=== PATIENT | male | born 1975 | race Caucasian/White ===

== ENCOUNTER 2025-03-03 17:07 | Emergency (ER) | payer OTHER ==
--- OUTSIDE RECORDS SUMMARY | 2025-03-03 17:10 | XMS REPORT | Continuity of Care Document ---
Author Name Unknown Address [address] [place] [address] Address [address] [facility]. [address] [place] [address] Care Team Providers Care Microsoft Architect Name Role Phone Ajibade_O_AH Attending Clinician Unavailable Ige-Odunuga_J_AH Attending Clinician Unavailable Ajibade_O_AH Admitting Clinician Unavailable Ige-Odunuga_J_AH Admitting Clinician Unavailable Payers Payer Name Policy Type Policy Number Effective Date Expirati on Date Source [facility] ([facility]IC[facility]PLACEMENT/ADVANT AGE - HMO) [id number] 7218-01-01 00:00:00
[2025-03-03 18:12] LABS: Influenza A Ag Negative; Influenza B Ag Negative; SARS-CoV-2 Antigen Rapid Res Negative (Negative)
[2025-03-03] MEDS ORDERED: levoFLOXacin 250 MG TAB ONE (18:38)
--- NOTE | 2025-03-03 18:51 | EDPHYS ---
Physician Documentation [facility] Name: Arsen Lind Jr Age: 49 yrs Sex: Male : 1975 Arrival Date: 03/03/2025 Time: 17:07 Bed 20 Private MD: ED Physician Edward Mcleod HPI: 03/03 17:30 This 49 yrs old Male presents to ER via Ambulatory with complaints of Shortness Of rn Breath, hallucinations, Flu Symptoms. 17:30 Patient reports 2 weeks of flulike symptoms, cough, congestion, runny nose, sore throat rn and now mild shortness of breath. Reports productive sputum. 2 days ago felt "strange". Initially reported hallucinations but when questioned further was not auditory or visual hallucinations he just did not feel right. No chronic lung problems or heart problems. Patient reports hypertension and has not been taking his medication recently. States current blood pressure of 180s over 100 his baseline for him.. Historical: - Allergies: 17:22 No Known Allergies; dd2 - PMHx: 17:22 Sleep apnea; dd2 - PSHx: 17:22 None; dd2 - Immunization history:: Adult Immunizations not up to date. - Infectious Disease History:: Denies. - Family history:: not pertinent. - Hospitalizations: : No recent hospitalization is reported. - Social history:: Smoking status: unknown. ROS: 17:30 Constitutional: Negative for fever, chills, and weight loss, Cardiovascular: Negative rn for chest pain, palpitations, and edema, Respiratory: Positive for cough and shortness of breath Abdomen/GI: Negative for abdominal pain, nausea, vomiting, diarrhea, and constipation, MS/Extremity: Negative for injury and deformity, Skin: Negative for injury, rash, and discoloration, Neuro: Negative for headache, weakness, numbness, tingling, and seizure, Exam: 17:30 Constitutional: This is a well developed, well nourished patient who is awake, alert, rn and in no acute distress. Cardiovascular: Tachycardic, regular no pulse deficits. Respiratory: Speaking full sentences, unlabored. No increased work of breathing, no retractions or nasal flaring. Neuro: Awake and alert, GCS 15 Vital Signs: 17:21 BP 188 / 102; Pulse 106; Resp 17; Temp 97.9(TE); Pulse Ox 100% on R/A; Pain 0/10; dd2 17:44 BP 163 / 91; Pulse 97; Resp 20; Pulse Ox 100% on R/A; ar8 18:40 BP 158 / 87; Pulse 84; Pulse Ox 99% on R/A; ar8 19:00 BP 158 / 78; Pulse 73; Resp 16; Pulse Ox 99% on R/A; ss12 17:21 Pain Scale: Adult dd2 MDM: 17:19 Medical Screening Exam initiated rn 18:17 Differential diagnosis: Bronchitis anxiety, pneumonia, Pneumothorax Psychogenic. Data rn reviewed: vital signs, nurses notes, lab test result(s), radiologic studies, plain films, and as a result, I will discharge patient. Independent interpretation of the following test(s) in the Emergency Department X-Ray: My interpretation is Chest x-ray images with bilateral perihilar infiltrates per my interpretation. No pneumothorax.. Care significantly affected by the following chronic conditions: Hypertension. Counseling: I had a detailed discussion with the patient and/or guardian regarding the historical points, exam findings, and any diagnostic results supporting the discharge/admit diagnosis, lab results, radiology results, the need for outpatient follow up, to return to the emergency department if symptoms worsen or persist or if there are any questions or concerns that arise at home. Special discussion: I discussed with the patient/guardian in detail that at this point there is no indication for admission to the hospital. It is understood, however, that if the symptoms persist or worsen the patient needs to return immediately for re-evaluation. 03/03 17:29 Order name: COVID-19 Ag + Flu A+B Ag; Complete Time: 18:16 rn 03/03 17:29 Order name: Group A Streptococcus Rapid; Complete Time: 18:16 rn 03/03 18:16 Order name: Throat Culture EDCA 03/03 17:29 Order name: XRAY Chest (1 view); Complete Time: 18:56 rn Administered Medications: 18:38 Drug: LevOfloxacin PO 500 mg PO once Route: PO; ar8 19:19 Follow up: Response: No adverse reaction ss12 19:10 Drug: Trimethoprim-Sulfamethoxazole PO (160 mg-800 mg (DS) 1 tablet PO once Route: PO; ss12 19:20 Follow up: Response: No adverse reaction ss12 Disposition Summary: 03/03/25 18:50 Discharge Ordered Notes: Location: Home rn Problem: new rn Symptoms: have improved rn Condition: Stable rn Diagnosis - Cough rn Followup: rn - With: Private Physician - When: 2 - 3 days - Reason: Recheck today's complaints, Re-evaluation by your physician Discharge Instructions: - Discharge Summary Sheet rn - Cough, Adult rn Forms: - Medication Reconciliation Form rn - Antibiotic wilderness guide - Prescription Opioid Use rn - Patient Portal Instructions rn - Leadership Thank You Letter rn Prescriptions: - levofloxacin 500 mg Oral tablet - take 1 tablet ORAL route once daily for 10 days; 10 tablet; Refills: 0, Product rn Selection Permitted Signatures: Dispatcher [employer] EDEdward Boss MD MD rn DAVIS, DIANA RN RN dd2 Yodit Monsivais, RN RN ss12 Lucio Cummins, RN RN ar8
--- NOTE | 2025-03-03 18:51 | ER ---
Nurse's Notes [facility] Name: Arsen Lind Jr Age: 49 yrs Sex: Male : 1975 Arrival Date: 03/03/2025 Time: 17:07 Bed 20 Private MD: Diagnosis: Cough Presentation: 03/03 17:16 Chief complaint: Patient states: HE HAS BEEN HAVING "FLU-LIKE" SYMPTOMS, CHEST PAIN, dd2 WEIRD DREAMS AND HALLUCINATIONS AND SHORTNESS OF BREATH FOR 2 WEEKS. PT REPORTS GAYLE DOESN'T KNOW IF THIS IS AUDITORY OR VISUAL HALLUCINATIONS. Coronavirus screen: chills, congestion, cough unrelated to allergies, fatigue, shortness of breath, sore throat. Ebola Screen: No symptoms or risks identified at this time. 17:16 Method Of Arrival: Ambulatory dd2 17:21 Initial Sepsis Screen: Does the patient meet any 2 criteria? No. Patient's initial dd2 sepsis screen is negative. Does the patient have a suspected source of infection? No. Patient's initial sepsis screen is negative. Risk Assessment: Do you want to hurt yourself or someone else? Patient reports no desire to harm self or others. Onset of symptoms is unknown. 17:21 Acuity: FERCHO 3 dd2 Triage Assessment: 17:22 General: Appears in no apparent distress. uncomfortable, Behavior is appropriate for dd2 age, agitated. Pain: Denies pain. Cardiovascular: Denies chest pain. Respiratory: Reports shortness of breath pain with cough Airway is patent Respiratory effort is even, unlabored, Respiratory pattern is regular, symmetrical. Historical: - Allergies: 17:22 No Known Allergies; dd2 - PMHx: 17:22 Sleep apnea; dd2 - PSHx: 17:22 None; dd2 - Immunization history:: Adult Immunizations not up to date. - Infectious Disease History:: Denies. - Family history:: not pertinent. - Hospitalizations: : No recent hospitalization is reported. - Social history:: Smoking status: unknown. Screenin:40 [facility] ED Fall Risk Assessment (Adult) History of falling in the last 3 months, ar8 including since admission No falls in past 3 months (0 pts) Confusion or Disorientation No (0 pts) Intoxicated or Sedated No (0 pts) Impaired Gait No (0 pts) Mobility Assist Device Used No (0 pt) Altered Elimination No (0 pt) Score/Fall Risk Level 0 - 2 = Low Risk Oriented to surroundings, Maintained a safe environment. Abuse screen: Denies threats or abuse. Nutritional screening: No deficits noted. Tuberculosis screening: No symptoms or risk factors identified. Assessment: 17:40 General: Appears in no apparent distress. Behavior is calm, cooperative. Pain: ar8 Complains of pain in throat. Neuro: Level of Consciousness is awake, alert, obeys commands, Oriented to person, place, time, situation. Cardiovascular: Patient's skin is warm and dry. Respiratory: Reports cough that is non-productive, congestion Airway is patent Respiratory effort is even, unlabored, Respiratory pattern is regular, symmetrical. GI: No signs and/or symptoms were reported involving the gastrointestinal system. : No signs and/or symptoms were reported regarding the genitourinary system. EENT: Reports nasal congestion. Derm: No signs and/or symptoms reported regarding the dermatologic system. 19:00 Reassessment: Patient appears in no apparent distress at this time. Patient and/or ss12 family updated on plan of care and expected duration. Pain level reassessed. Patient is alert, oriented x 3, equal unlabored respirations, skin warm/dry/pink. Neuro: Level of Consciousness is awake, alert, obeys commands, Oriented to person, place, time, situation. Respiratory: Reports cough that is non-productive, Airway is patent Respiratory effort is even, unlabored, Respiratory pattern is regular, symmetrical. 19:23 Pain: Pain began. ss12 Vital Signs: 17:21 BP 188 / 102; Pulse 106; Resp 17; Temp 97.9(TE); Pulse Ox 100% on R/A; Pain 0/10; dd2 17:44 BP 163 / 91; Pulse 97; Resp 20; Pulse Ox 100% on R/A; ar8 18:40 BP 158 / 87; Pulse 84; Pulse Ox 99% on R/A; ar8 19:00 BP 158 / 78; Pulse 73; Resp 16; Pulse Ox 99% on R/A; ss12 17:21 Pain Scale: Adult dd2 ED Course: 17:08 Patient arrived in ED. am2 17:18 Edward Mcleod MD is Attending Physician. rn 17:22 Triage completed. dd2 17:22 Arm band placed on right wrist. dd2 17:35 Placido, Lucio, RN is Primary Nurse. ar8 17:40 Bed in low position. Call light in reach. Side rails up X2. Provided Education on: plan ar8 of care, diagnostics and estimated wait time. Pulse ox on. NIBP on. 17:40 Group A Streptococcus Rapid Sent. ar8 17:40 COVID-19 Ag + Flu A+B Ag Sent. ar8 17:40 No provider procedures requiring assistance completed. Patient maintains SpO2 ar8 saturation greater than 95% on room air. 18:51 XRAY Chest (1 view) In Process Unspecified. EDMS 19:22 Patient did not have IV access during this emergency room visit. ss12 Administered Medications: 18:38 Drug: LevOfloxacin PO 500 mg PO once Route: PO; ar8 19:19 Follow up: Response: No adverse reaction ss12 19:10 Drug: Trimethoprim-Sulfamethoxazole PO (160 mg-800 mg (DS) 1 tablet PO once Route: PO; ss12 19:20 Follow up: Response: No adverse reaction ss12 Medication: 17:40 VIS not applicable for this client. ar8 Outcome: 18:50 Discharge ordered by . rn 19:22 Discharged to home ambulatory, ss12 19:22 Condition: stable 19:22 Discharge instructions given to patient, family, Instructed on discharge instructions, follow up and referral plans. Demonstrated understanding of instructions, follow-up care, medications, Prescriptions given X 1, 19:23 Patient left the ED. ss12 Signatures: Dispatcher [employer] EDCA Edward Mcleod MD MD rn Moreno, Amanda am2 SAUL DHALIWAL RN RN dd2 Yodit Monsivais RN RN ss12 Lucio Cummins, RN RN ar8
--- NOTE | 2025-03-03 18:55 | RAD REPORT ---
Procedure: Chest Single View HISTORY: Cough COMPARISON: none FINDINGS: The lungs appear clear of acute infiltrate. No significant pleural effusion noted. The heart is normal size.. Postsurgical changes involve the cervical/upper thoracic spine IMPRESSION: No acute abnormality is displayed.
[2025-03-03] MEDS ORDERED: SMZ./TMP. 800/160 MG TABLET ONE (19:14)
[2025-03-03 19:53] VITALS: TEMP 97.9
[2025-03-03 19:54] VITALS: O2SAT 99
[2025-03-03 19:56] VITALS: BP 158/78
== END 2025-03-03 19:23 | disposition home or self-care (01) ==
LOC: ER 17:07
DX: R05.9 Cough, unspecified (principal); R06.02 Shortness of breath; J02.9 Acute pharyngitis, unspecified; Z11.52 Encounter for screening for COVID-19
CPT/HCPCS: 36415; 71045; 87070; 87428; 99284

== ENCOUNTER 2025-03-05 15:04 | Emergency (ER) | payer OTHER ==
--- OUTSIDE RECORDS SUMMARY | 2025-03-05 15:08 | XMS REPORT | Continuity of Care Document ---
Author Name Unknown Address [address] [place] [id number] [place] [address] [place] [address] [address] [place] [address] Care Team Providers Care Web Software Engineer Name Role Phone Ajibade_O_AH Attending Clinician Unavailable Ige-Odunuga_J_AH Attending Clinician Unavailable Ajibade_O_AH Admitting Clinician Unavailable Ige-Odunuga_J_AH Admitting Clinician Unavailable Payers Payer Name Policy Type Policy Number Effective Date Expirati on Date Source [facility]AC[facility]/ADVANT AGE - HMO) [id number] 0291-01-01 00:00:00
[2025-03-05] MEDS ORDERED: ASPIRIN 81 MG CHEWABLE TABLET ONE (15:31)
--- NOTE | 2025-03-05 15:34 | RAD REPORT ---
Procedure: Chest Single View HISTORY: Chest pain COMPARISON: March 03, 2025 FINDINGS: The lungs appear clear of acute infiltrate. No significant pleural effusion noted. The heart is normal size. Post surgical changes involve the spine IMPRESSION: No acute abnormality is displayed.
[2025-03-05 15:51] LABS: Absolute Lymphocytes (CBC) 2.0 K/uL (0.7-4.9); Hematocrit 37.9 % (39.6-49.0); Hemoglobin 13.3 g/dL (13.6-17.9); MCH 30.8 pg (27.0-35.0); MCHC 35.2 g/dL (32.0-36.0); MCV 87.6 fL (80-100); MPV 7.3 fL (7.6-11.3); Nucleated RBC Absolute Count 0.0 (0-0); Nucleated Red Blood Cells % 0.1 % (0-0); RBC Red Blood Cell Count 4.33 M/uL (4.33-5.43); White Blood Count 9.40 thou/uL (4.3-10.9)
[2025-03-05 16:16] LABS: Anion Gap 6.1 mEq/L (5.0-15.0); BUN Blood Urea Nitrogen 10.0 mg/dL (7-18); Glucose Level 124.0 mg/dL (74-106); Magnesium 2.0 mg/dL (1.6-2.4); NT PRO-BNP 26.0 pg/mL (<125); Potassium 3.1 mEq/L (3.5-5.1); Troponin High Sensitivity 22.9 pg/mL (<58.9)
[2025-03-05] MEDS ORDERED: POTASSIUM CL SA 10 MEQ TAB PO ONE (16:31)
--- NOTE | 2025-03-05 17:52 | RAD REPORT ---
EXAMINATION: CTA CHEST PE CLINICAL INDICATION: Shortness of breath TECHNIQUE: 100 cc 370 Isovue administered intravenously. This examination was performed according to an angiographic protocol with 3D post-processing. This involves 3D reconstructions, MIPs, volume rendered images and/or shaded surface rendering. One or more of the following dose reduction techniqu es were used: Automated exposure control, adjustment of the mA and/or kV according to patient size, and/or iterative reconstruction. Unless otherwise specified, incidental findings do not require dedic ated imaging follow-up. [id number]. COMPARISON: No prior exam. FINDINGS: A pulmonary embolus is not seen. Mid ascending thoracic aorta 4.1 cm No pleural effusion. No pericardial effusion. Calcified granuloma right lung Marked fatty liver IMPRESSION: No evidence of a pulmonary embolism 4.1 cm thoracic aortic aneurysm
--- NOTE | 2025-03-05 18:47 | EDPHYS ---
Physician Documentation [facility] Name: Arsen Lind Jr Age: 49 yrs Sex: Male : 1975 Arrival Date: 03/05/2025 Time: 15:04 Bed 23 Private MD: ED Physician Krystle Pino HPI: 03/05 15:36 This 49 yrs old Male presents to ER via Ambulatory with complaints of Chest Tightness, kb Arm Pain - Left, Doesn't Feel Right. 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 States pain and shortness of breath has now resolved. Reports he still has some tenderness upon palpation of chest wall. REcently diagnosed with pneumonia and is on day 3 of antibiotics. . Historical: - Allergies: 15:17 PENICILLINS; dd2 - PMHx: 15:17 Sleep Apnea; dd2 - PSHx: 15:17 NECK SX; dd2 - Immunization history:: Adult Immunizations unknown. - Infectious Disease History:: Denies. - Social history:: Smoking status: Patient denies any tobacco usage or history of. ROS: 15:38 Constitutional: As per HPI kb Exam: 15:38 Constitutional: This is a well developed, well nourished patient who is awake, alert, kb and in no acute distress. Head/Face: Normocephalic, atraumatic. ENT: Moist Mucous membranes Cardiovascular: Tachycardic rate Respiratory: Respirations even and unlabored. No increased work of breathing. Talking in full sentences Skin: Warm, dry with normal turgor. Normal color. MS/ Extremity: Pulses equal, no cyanosis. Neurovascular intact. Full, normal range of motion. Neuro: Awake and alert, GCS 15, oriented to person, place, time, and situation. 15:38 Chest/axilla: Palpation: tenderness, that is mild, of the anterior aspect of left upper chest, 16:20 ECG was reviewed by the Attending Physician. kb Vital Signs: 15:16 BP 161 / 109; Pulse 102; Resp 17; Temp 98.2; Pulse Ox 100% on R/A; Pain 3/10; dd2 15:20 BP 136 / 110; Pulse 87; Resp 20; Pulse Ox 99% ; kj2 15:50 BP 149 / 78; Pulse 95; Resp 20; Pulse Ox 99% ; kj2 17:33 BP 126 / 89; Pulse 88; Resp 20; Pulse Ox 97% on R/A; kj2 18:30 BP 132 / 84; Pulse 86; Resp 20; Temp 98; Pulse Ox 100% ; kj2 15:16 Pain Scale: Adult dd2 MDM: 15:10 Medical Screening Exam initiated kb 18:45 Differential diagnosis: Arrhythmia, acute MN, CAD. Data reviewed: vital signs, nurses kb notes. Consideration of Admission/Observation Escalation of care including admission/observation considered. Admission considered but pain resolved, heart score 2. Patient states he does not think that admission is necessary at this time. He will return for worsening symptoms or any other concerns. [facility] 4.1 [facility]. Counseling: I had a detailed discussion with the patient and/or guardian regarding the historical points, exam findings, and any diagnostic results supporting the discharge/admit diagnosis, lab results, radiology results, the need for outpatient follow up, a family practitioner, to return to the emergency department if symptoms worsen or persist or if there are any questions or concerns that arise at home. 03/05 15:15 Order name: Basic Metabolic Panel; Complete Time: 16:19 kb 03/05 15:15 Order name: CBC with Diff; Complete Time: 16:04 kb 03/05 15:15 Order name: Magnesium; Complete Time: 16:19 kb 03/05 15:15 Order name: NT PRO-BNP; Complete Time: 16:19 kb 03/05 15:15 Order name: Troponin HS; Complete Time: 16:19 kb 03/05 15:18 Order name: D-Dimer; Complete Time: 16:43 kb 03/05 17:46 Order name: Troponin High Sensitivity; Complete Time: 18:36 kb 03/05 15:15 Order name: XRAY Chest (1 view); Complete Time: 15:35 kb 03/05 16:44 Order name: CT Chest For PE Angio; Complete Time: 17:55 kb 03/05 15:15 Order name: EKG; Complete Time: 15:16 kb 03/05 15:15 Order name: Cardiac monitoring; Complete Time: 16:15 kb 03/05 15:15 Order name: EKG - Nurse/Tech; Complete Time: 16:15 kb 03/05 15:15 Order name: IV Saline Lock; Complete Time: 16:15 kb 03/05 15:15 Order name: Labs collected and sent; Complete Time: 16:30 kb 03/05 15:15 Order name: O2 Per Protocol; Complete Time: 16:30 kb 03/05 15:15 Order name: O2 Sat Monitoring; Complete Time: 16:16 kb EC:20 Rate is 84 beats/min. Rhythm is regular. QRS Jeffers is Normal. MI interval is prolonged kb at 204 msec. QRS interval is normal at 86 msec. QT interval is normal at 456 msec. Administered Medications: 15:35 Drug: Aspirin PO Chewable Tablet 324 mg PO once; 81 mg tablets x 4 Route: PO; kj2 16:30 Follow up: Response: No adverse reaction kj2 16:34 Drug: Potassium Chloride PO 40 mEq PO once Route: PO; kj2 18:01 Follow up: Response: No adverse reaction kj2 Disposition Summary: 03/05/25 18:47 Discharge Ordered Notes: Location: Home kb Condition: Stable kb Diagnosis - Chest pain, unspecified kb - 4.1 cm thoracic aortic aneurysm kb Followup: kb - With: Emergency Department - When: As needed - Reason: Worsening of condition Followup: kb - With: Private Physician - When: 2 - 3 days - Reason: Recheck today's complaints, Continuance of care, Re-evaluation by your physician Discharge Instructions: - Discharge Summary Sheet kb - Thoracic Aortic Aneurysm kb - Nonspecific Chest Pain, Adult, [id number] kb Forms: - Medication Reconciliation Form kb - Antibiotic Education kb - Prescription Opioid Use kb - Patient Portal Instructions kb - Leadership Thank You Letter kb Signatures: Dispatcher [employer] EDID Keren Abel FNP-Cherise OLIVASP-Shoshana Rivera, RN RN kj2 SAUL DHALIWAL, RN RN dd2 Corrections: (The following items were deleted from the chart) 15:18 15:17 Allergies: No Known Allergies; dd2 dd2 15:18 15:17 PSHx: None; dd2 dd2 17:47 17:47 Troponin High Sensitivity+C.LAB.BRZ ordered. EDID EDMS
--- NOTE | 2025-03-05 18:47 | ER ---
Nurse's Notes [facility] Name: Arsen Lind Jr Age: 49 yrs Sex: Male : 1975 Arrival Date: 03/05/2025 Time: 15:04 Bed 23 Private MD: Diagnosis: Chest pain, unspecified;4.1 cm thoracic aortic aneurysm Presentation: 03/05 15:12 Chief complaint: Patient states: CHEST TIGHTNESS, LT ARM PAIN AND SOB THAT BEGAN 45 dd2 MINS AGO. REPORTS LT ARM FEELS FULL. REPORTS SYMPTOMS BETTER SINCE ARRIVAL. Coronavirus screen: At this time, the client does not indicate any symptoms associated with coronavirus-19. Ebola Screen: No symptoms or risks identified at this time. Risk Assessment: Do you want to hurt yourself or someone else? Patient reports no desire to harm self or others. Onset of symptoms was March 05, 2025 at 14:30. 15:12 Method Of Arrival: Ambulatory dd2 15:12 Acuity: FERCHO 3 dd2 15:16 Initial Sepsis Screen: Does the patient meet any 2 criteria? No. Patient's initial dd2 sepsis screen is negative. Does the patient have a suspected source of infection? No. Patient's initial sepsis screen is negative. Triage Assessment: 15:17 General: Appears in no apparent distress. Behavior is calm, cooperative, appropriate dd2 for age. Pain: Complains of pain in anterior aspect of left upper chest and left bicep. Cardiovascular: Reports chest pain, RESOLVED AT THIS TIME. Musculoskeletal: Reports pain in left bicep. Historical: - Allergies: 15:17 PENICILLINS; dd2 - PMHx: 15:17 Sleep Apnea; dd2 - PSHx: 15:17 NECK SX; dd2 - Immunization history:: Adult Immunizations unknown. - Infectious Disease History:: Denies. - Social history:: Smoking status: Patient denies any tobacco usage or history of. Screenin:40 [facility] ED Fall Risk Assessment (Adult) History of falling in the last 3 months, kj2 including since admission No falls in past 3 months (0 pts) Confusion or Disorientation No (0 pts) Intoxicated or Sedated No (0 pts) Impaired Gait No (0 pts) Mobility Assist Device Used No (0 pt) Altered Elimination No (0 pt) Score/Fall Risk Level 0 - 2 = Low Risk Maintained a safe environment, Hourly rounding (assess needs \T\ fall precautionary measures) done. Abuse screen: Denies threats or abuse. Denies injuries from another. Nutritional screening: No deficits noted. Tuberculosis screening: No symptoms or risk factors identified. Assessment: 15:40 General: Appears in no apparent distress. Behavior is calm, cooperative. Pain: kj2 Complains of pain in left arm and chest Pain began 1 hour ago. Neuro: Level of Consciousness is awake, alert, Oriented to person, place, time, situation. Cardiovascular: Reports chest pain, Patient's skin is warm and dry. Respiratory: Airway is patent Respiratory effort is unlabored. GI: No signs and/or symptoms were reported involving the gastrointestinal system. : No signs and/or symptoms were reported regarding the genitourinary system. 16:35 Reassessment: Patient appears in no apparent distress at this time. Patient and/or kj2 family updated on plan of care and expected duration. Pain level reassessed. Patient is alert, oriented x 3, equal unlabored respirations, skin warm/dry/pink. 17:33 Reassessment: Patient appears in no apparent distress at this time. Patient and/or kj2 family updated on plan of care and expected duration. Pain level reassessed. Patient is alert, oriented x 3, equal unlabored respirations, skin warm/dry/pink. returning from CT. 18:38 Reassessment: Patient appears in no apparent distress at this time. Patient and/or kj2 family updated on plan of care and expected duration. Pain level reassessed. Patient is alert, oriented x 3, equal unlabored respirations, skin warm/dry/pink. Vital Signs: 15:16 BP 161 / 109; Pulse 102; Resp 17; Temp 98.2; Pulse Ox 100% on R/A; Pain 3/10; dd2 15:20 BP 136 / 110; Pulse 87; Resp 20; Pulse Ox 99% ; kj2 15:50 BP 149 / 78; Pulse 95; Resp 20; Pulse Ox 99% ; kj2 17:33 BP 126 / 89; Pulse 88; Resp 20; Pulse Ox 97% on R/A; kj2 18:30 BP 132 / 84; Pulse 86; Resp 20; Temp 98; Pulse Ox 100% ; kj2 15:16 Pain Scale: Adult dd2 ED Course: 15:07 Patient arrived in ED. im 15:08 Keren Abel [facility]-C [facility]. kb 15:08 Krystle Pino MD is Attending Physician. kb 15:15 Triage completed. dd2 15:17 Arm band placed on right wrist. dd2 15:26 Shoshana Rubin, RN is Primary Nurse. kj2 15:30 Inserted saline lock: 20 gauge in left antecubital area, using aseptic technique. Blood kj2 collected. Flushed with 10 mL NS. 15:31 XRAY Chest (1 view) In Process Unspecified. EDMS 15:40 Patient has correct armband on for positive identification. Bed in low position. Call kj2 light in reach. Provided Education on: call light. Client placed on continuous cardiac and pulse oximetry monitoring. NIBP monitoring applied. business reporting developer on. Pulse ox on. NIBP on. 15:40 Patient maintains SpO2 saturation greater than 95% on room air. kj2 16:16 EKG done, by fingerprint technician. reviewed by Keren WRIGHT. ts3 17:29 CT Chest For PE Angio In Process Unspecified. EDMS 18:01 Troponin High Sensitivity Sent. kj2 18:49 No provider procedures requiring assistance completed. IV discontinued, intact, kj2 bleeding controlled, No redness/swelling at site. Pressure dressing applied. Administered Medications: 15:35 Drug: Aspirin PO Chewable Tablet 324 mg PO once; 81 mg tablets x 4 Route: PO; kj2 16:30 Follow up: Response: No adverse reaction kj2 16:34 Drug: Potassium Chloride PO 40 mEq PO once Route: PO; kj2 18:01 Follow up: Response: No adverse reaction kj2 Medication: 18:48 VIS not applicable for this client. kj2 Outcome: 18:47 Discharge ordered by . kb 18:50 Discharged to home ambulatory, kj2 18:50 Condition: stable 18:50 Discharge instructions given to patient, Instructed on discharge instructions, follow up and referral plans. Demonstrated understanding of instructions, follow-up care, 19:04 Patient left the ED. kj2 Signatures: Dispatcher [employer] [facility] Keren Abel FNP-C FNP-Ckb Mendoza, Itzel im Shoshana Rubin, RN RN kj2 SAUL DHALIWAL RN RN dd2 Janelle Allen ts3 Corrections: (The following items were deleted from the chart) 15:18 15: Allergies: No Known Allergies; dd2 dd2 15: PSHx: None; dd2 dd2
[2025-03-05 19:36] VITALS: BP 132/84; TEMP 98; O2SAT 100
== END 2025-03-05 19:04 | disposition home or self-care (01) ==
LOC: ER 15:04
DX: I71.20 Thoracic aortic aneurysm, without rupture, unspecified (principal)
CPT/HCPCS: 93005; 85025; 80048; 36415; 83735; 85379; 84484 ×2; 83880; 71275; 71045; 99285; Q9967